=== PATIENT | female | born 1995 | race Caucasian/White ===

== ENCOUNTER 2017-02-21 02:11 | Emergency (ER) | payer OTHER ==
[2017-02-21] MEDS ORDERED: IBUPROFEN 600 MG TAB PO ONE (02:46)
--- NOTE | 2017-02-21 02:53 | EDPHY ---
H & P Stated Complaint: pt c/o right ear and throat pain. HPI/ROS: HPI CHIEF COMPLAINT: Sore throat, right ear pain HISTORY OF PRESENT ILLNESS: This patient very pleasant 21-year-old female otherwise healthy no significant medical history she presents emergency room right ear pain and sore throat times 24 hours. No fever no vomiting no chest pain or shortness of breath. She decided come to the emergency room as the pain was causing a great deal of pain during the night. Past Medical History: Significant medical history Past Surgical History: No significant surgical history Social History: [employer] student, denies drugs alcohol tobacco products. Family History: Noncontributory ROS REVIEW OF SYSTEMS: A comprehensive 10 point review of systems is otherwise negative aside from elements mentioned in the history of present illness. Exam Constitutional triage nursing summary reviewed, vital signs reviewed, awake/ alert. Eyes normal conjunctivae and sclera, EOMI, PERRLA. HENT right TM erythematous and bulging, left TM normal, posterior pharynx 2+ tonsillar bed swelling, exudate present, red, uvula midline, no significant signs of [employer] PROCESS[employer] no stridor, no drooling, no trismus. moist mucus membranes, no epistaxis, neck supple/ no meningismus, no raccoon eyes. Respiratory clear to auscultation bilaterally, normal breath sounds, no respiratory distress, no wheezing. Cardiovascular rate normal, regular rhythm, no murmur, no edema, distal pulses normal. Gastrointestinal soft, non-tender, no rebound, no guarding, normal bowel sounds, no distension, no pulsatile mass. Genitourinary no CVA tenderness. Musculoskeletal no midline vertebral tenderness, full range of motion, no calf swelling, no tenderness of extremities, no meningismus, good pulses, neurovascularly intact. Skin pink, warm, & dry, no rash, skin atraumatic. Neurologic awake, alert and oriented x 3, AAOx3, moves all 4 extremities equally, motor intact, sensory intact, CN II-XII intact, normal cerebellar, normal vision, normal speech. Psychiatric normal mood/affect. Heme/Lymph/Immune no lymphadenopathy. Differential Diagnosis: Strep pharyngitis, viral pharyngitis, mono, otitis media Medical Decision Making: Plan for this patient she has a positive strep test, additionally she has a right otitis media on exam with a bulging erythematous TM. Re-evaluation: Recommend starting on ibuprofen, Decadron and amoxicillin. Staying well hydrated. Return emergency room if there is worsening symptoms questions or concerns. Source: Patient - Personal History LMP (Females 10-55): 8-14 Days Ago Current Tetanus Diphtheria and Acellular Pertussis (TDAP): Yes - Medical/Surgical History Hx Asthma: No Hx Chronic Respiratory Disease: No Hx Diabetes: No Hx Cardiac Disease: No Hx Renal Disease: No Hx Cirrhosis: No Hx Alcoholism: No Hx HIV/AIDS: No Hx Splenectomy or Spleen Trauma: No Other PMH: anxiety - Social History Smoking Status: Never smoked Constitutional: Initial Vital Signs Temperature (C) 36.9 C 02/21/17 02:15 Heart Rate 74 02/21/17 02:15 Respiratory Rate 16 02/21/17 02:15 Blood Pressure 122/81 H 02/21/17 02:15 O2 Sat (%) 96 02/21/17 02:15 O2 Delivery Mode Room Air Allergies/Adverse Reactions: No Known Allergies Allergy (Unverified 02/21/17 02:14) Home Medications: Medication Instructions Recorded Amoxicillin 500 mg PO TID 7 Days 02/21/17 Dexamethasone [Decadron 4 MG (*)] 4 mg PO DAILY #4 tab 02/21/17 Hydrocodone/APAP 5/325 [[place] 1 - 2 tab PO Q4H PRN #10 tab 02/21/17 5/325] Ibuprofen [Motrin (*)] 800 mg PO Q6-8PRN #7 tab 02/21/17 Zoloft 25mg (*) 02/21/17 Medical Decision Making - Data Points Laboratory Results: 02/21/17 02:20 Group A Strep Screen POSITIVE H (NEGATIVE) Medications Given: Discontinued Medications Amoxicillin (Amoxicillin) 500 mg PO EDNOW ONE PRN Reason: Protocol Stop: 02/21/17 02:54 Last Admin: 02/21/17 03:09 Dose: 500 mg Ibuprofen (Motrin) 600 mg PO EDNOW ONE Stop: 02/21/17 02:47 Last Admin: 02/21/17 03:01 Dose: 600 mg Departure - Departure Disposition: Home, Routine, Self-Care Clinical Impression: Strep pharyngitis Otitis media Qualifiers: Otitis media type: suppurative Chronicity: acute Laterality: right Recurrence: not specified as recurrent Spontaneous tympanic membrane rupture: without spontaneous rupture Qualified Code(s): H66.001 - Acute suppurative otitis media without spontaneous rupture of ear drum, right ear Condition: Good Instructions: Strep Throat (ED), Otitis Media (ED) Additional Instructions: 1. Drink lots of fluids stay well-hydrated. 2. Take Tylenol Motrin for pain control. 3. Decadron for 3 days. 4. Amoxicillin as prescribed. Referrals: MD BRAEDEN [Other] - As per Instructions Prescriptions: Amoxicillin 500 mg PO TID 7 Days Dexamethasone [Decadron 4 MG (*)] 4 mg PO DAILY #4 tab Hydrocodone/APAP 5/325 [[place] 5/325] 1 - 2 tab PO Q4H PRN #10 tab PRN Reason: Pain, Moderate Ibuprofen [Motrin (*)] 800 mg PO Q6-8PRN #7 tab
[2017-02-21] MEDS ORDERED: DEXAMETHASONE 4 MG TAB PO ONE (03:13)
[2017-02-21 03:38] VITALS: BP 124/78; PULSE 66; RESP 18; TEMP 98.2; O2SAT 94
== END 2017-02-21 03:38 | disposition home or self-care (01) ==
DX: J02.0 Streptococcal pharyngitis (principal); H66.001 Acute suppurative otitis media without spontaneous rupture of ear drum, right ear